=== PATIENT | female | born 1985 | race African-American/Black ===

== ENCOUNTER 2016-10-17 20:25 | Emergency (ER) | payer MEDICAID ==
[~2016-10-17] VITALS: Ht 177.8 cm; Wt 83.0 kg
[2016-10-18] MEDS ORDERED: BACITRACIN ZINC OINT UDPKT TOP ONE (00:30)
[2016-10-18] MEDS ORDERED: IBUPROFEN 600MG TABLET PO ONE (00:30)
[2016-10-18] MEDS ORDERED: TETANUS, DIPHTHERIA, PERTUSSIS VAC/PF 0.5ML (>7YR OLD) IM ONE (00:45)
[2016-10-18] MEDS ORDERED: LIDOCAINE HCL 1% 20ML VIAL (Pyxis) INJ INFIL ONE (00:45)
[2016-10-18 00:47] VITALS: BP 152/100
== END 2016-10-18 01:30 | disposition home or self-care (01) ==
LOC: ER 23:00
DX: S61.412A Laceration without foreign body of left hand, initial encounter (principal); W45.8XXA Other foreign body or object entering through skin, initial encounter; Y93.89 Activity, other specified; Y99.9 Unspecified external cause status; Y92.89 Other specified places as the place of occurrence of the external cause; Z23 Encounter for immunization
CPT/HCPCS: 12001; 90471; 90715; 99283; J3490

== ENCOUNTER 2016-10-27 20:49 | Emergency (ER) | payer MEDICAID ==
[~2016-10-27] VITALS: Ht 177.8 cm; Wt 79.0 kg
[2016-10-27 21:02] VITALS: BP 143/90
== END 2016-10-28 | disposition home or self-care (01) ==
LOC: ER 23:49
DX: Z48.02 Encounter for removal of sutures (principal)
CPT/HCPCS: 99281; Z7610

== ENCOUNTER 2017-05-14 16:53 | Emergency (ER) | payer MEDICAID ==
[~2017-05-14] VITALS: Ht 177.8 cm; Wt 79.0 kg
[2017-05-14] MEDS ORDERED: IBUPROFEN 600MG TABLET PO ONE (23:15)
[2017-05-15 00:47] VITALS: BP 155/102
== END 2017-05-15 01:31 | disposition home or self-care (01) ==
LOC: ER 16:53
DX: S93.401A Sprain of unspecified ligament of right ankle, initial encounter (principal); W10.8XXA Fall (on) (from) other stairs and steps, initial encounter; Y93.89 Activity, other specified; Y92.89 Other specified places as the place of occurrence of the external cause; Y99.8 Other external cause status
CPT/HCPCS: 73610; 99284